=== PATIENT | male | born 1995 | race African-American/Black ===

== ENCOUNTER 2023-08-10 16:13 | Emergency (ER) | payer MEDICAID ==
[~2023-08-10] VITALS: Ht 180.3 cm; Wt 104.0 kg
[2023-08-10 16:19] VITALS: O2SAT 98
[2023-08-10 18:17] LABS: BASOPHILS % 0.6 % (0.0-2.0); EOSINOPHILS % 0.4 % (0.0-5.0); HEMATOCRIT. 41.3 % (42.0-52.0); HEMOGLOBIN. 13.9 g/dL (14.0-18.0); LYMPHOCYTES % 17.2 % (20.0-50.0); MEAN CORPUSCULAR HEMOGLOBIN 32.3 pg (28.0-32.0); MEAN CORPUSCULAR HGB CONC 33.6 g/dL (31.0-37.0); MEAN CORPUSCULAR VOLUME 96.2 fL (80.0-94.0); MEAN PLATELET VOLUME 7.4 fl (7.4-10.4); MONOCYTES % 5.6 % (2.0-8.0); NEUTROPHILS % 76.2 % (40.0-76.0); PLATELET 188 x1000/uL (130-400); RED CELL DISTRIBUTION WIDTH 13.3 % (11.6-14.6); WHITE BLOOD COUNT 7.9 x1000/uL (4.5-11.0)
[2023-08-10 18:31] LABS: ACETAMINOPHEN < 2 ug/mL (10-30); ALANINE AMINOTRANSFERASE 21 IU/L (10-49); ALBUMIN 4.4 g/dL (3.2-4.8); ASPARTATE AMINOTRANSFERASE 42 IU/L (<34); BILIRUBIN TOTAL 1.2 mg/dL (0.1-1.0); CARBON DIOXIDE 22 mEq/L (21-32); CHLORIDE 105 mEq/L (98-107); CREATININE 1.1 mg/dL (0.6-1.3); ETHANOL BLOOD < 10 mg/dL (<10); GLUCOSE 76 mg/dL (70-105); POTASSIUM 3.9 mEq/L (3.5-5.1); PROTEIN TOTAL 7.5 g/dL (6.0-8.3); SODIUM 136 mEq/L (136-145); UREA NITROGEN BLOOD 9 mg/dL (9-23)
[2023-08-10 21:48] LABS: CLARITY URINE CLEAR (CLEAR); COLOR URINE YELLOW (YELLOW); GLUCOSE URINE NEGATIVE (NEGATIVE); KETONES URINE 3+ (NEGATIVE); LEUKOCYTE ESTERASE URINE NEGATIVE (NEGATIVE); NITRITE URINE NEGATIVE (NEGATIVE); OCCULT BLOOD URINE NEGATIVE (NEGATIVE); PH URINE 5.5 (4.5-8.0); PROTEIN URINE TRACE (NEGATIVE); SPECIFIC GRAVITY URINE 1.026 (1.005-1.030)
[2023-08-10 22:00] LABS: *AMPHETAMINES SCREEN URINE NEGATIVE (NEGATIVE); *BARBITURATES SCREEN URINE NEGATIVE (NEGATIVE); *BENZODIAZEPINES SCREEN URINE NEGATIVE (NEGATIVE); *COCAINE SCREEN URINE NEGATIVE (NEGATIVE); CANNABINOID URINE SCREEN PRESUMPTIVE POSITIVE (NEGATIVE); ECSTASY MDMA SCREEN URINE NEGATIVE (NEGATIVE); METHADONE URINE SCREEN Neg (NEGATIVE); OPIATES URINE SCREEN NEGATIVE (NEGATIVE); PHENCYCLIDINE URINE SCREEN NEGATIVE (NEGATIVE)
[2023-08-10 22:04] LABS: BACTERIA URINE TRACE; RBC URINE NONE SEEN /hpf (0-2); SQUAMOUS EPITHELIAL CELL URINE RARE /lpf (RARE/1+)
[2023-08-10 22:05] LABS: WBC URINE 0-2 /hpf (0-2)
[2023-08-12 08:44] VITALS: BP 108/71; PULSE 63; RESP 12; TEMP 97.8
[2023-08-12] MEDS ORDERED: IBUP-2029 MT (12:28)
== END 2023-08-12 10:48 | disposition home or self-care (01) ==
LOC: ER 16:32
DX: R45.851 Suicidal ideations (principal); I49.9 Cardiac arrhythmia, unspecified; Z20.822 Contact with and (suspected) exposure to COVID-19; Z86.59 Personal history of other mental and behavioral disorders
CPT/HCPCS: 36415; 80053; 80305; 80307; 80320; 80329; 81003; 85025; 87426; 93005; 99285; G0480

== ENCOUNTER 2023-08-12 10:41 | Emergency (ER) | payer MEDICAID ==
[~2023-08-12] VITALS: Ht 185.4 cm; Wt 113.0 kg
[2023-08-12 10:53] VITALS: O2SAT 97
[2023-08-12] MEDS ORDERED: IBUPROFEN 600MG TABLET PO ONE (11:15)
[2023-08-12] MEDS ORDERED: IBUP-2029 MT (12:28)
[2023-08-12] MEDS ORDERED: ONDANSETRON 4MG ODT PO ONE (12:30)
[2023-08-12] MEDS ORDERED: AZITHROMYCIN 500 MG TABLET PO ONE (12:30)
[2023-08-12] MEDS ORDERED: GENTAMICIN SULF 40MG/ML 2ML VIAL IM ONE (12:30)
[2023-08-12 13:32] VITALS: BP 127/75; PULSE 96; RESP 20; TEMP 98.5
== END 2023-08-12 13:34 | disposition home or self-care (01) ==
LOC: ER 10:41
DX: N45.2 Orchitis (principal); F20.9 Schizophrenia, unspecified; F12.90 Cannabis use, unspecified, uncomplicated; Z88.8 Allergy status to other drugs, medicaments and biological substances
CPT/HCPCS: 99285; 93976; 76870; 96372; Q0162; J1580